=== PATIENT | female | born 2000 | race Caucasian/White ===

== ENCOUNTER 2021-11-02 14:18 | Emergency (ER) | payer BC ==
[~2021-11-02] VITALS: Ht 162.6 cm; Wt 52.2 kg
[2021-11-02] MEDS ORDERED: IV NORMAL SALINE 1000 ML BAG IV ONE ×3 (14:45→18:30)
[2021-11-02] MEDS ORDERED: ONDANSETRON 4 MG/2 ML VIAL IV ONE ×2 (14:45→18:30)
[2021-11-02] MEDS ORDERED: ONDANSETRON 4 MG/2 ML VIAL ONE (15:01)
[2021-11-02 15:03] LABS: HEMATOCRIT 45.9 % (31.2-41.9); MEAN CORPUSCULAR HEMOGLOBIN 30.1 uug (24.7-32.8); MEAN CORPUSCULAR VOLUME 85.9 fL (75.5-95.3); PLATELET COUNT (AUTO) 405 K/uL (179-408)
[2021-11-02 15:14] LABS: CARBON DIOXIDE 33 mmol/L (21-32); CHLORIDE 92 mmol/L (98-107); CREATININE 1.5 mg/dL (0.6-1.3); GLUCOSE 158 mg/dL (74-106); POTASSIUM 2.9 mmol/L (3.5-5.1); UREA NITROGEN, BLOOD 50 mg/dL (7-18)
[2021-11-02 15:20] LABS: ALANINE AMINOTRANSFERASE 26 U/L (14-59); ALKALINE PHOSPHATASE 98 U/L (50-136); ASPARTATE AMINOTRANSFERASE 42 U/L (15-37); BILIRUBIN,DIRECT 0.2 mg/dL (0.0-0.2); BILIRUBIN,TOTAL 1.1 mg/dL (0.2-1.0); TOTAL PROTEIN, SERUM 8.9 g/dL (6.4-8.2)
[2021-11-02 15:25] LABS: ETHANOL < 3 MG/DL (0-0)
[2021-11-02 15:39] LABS: ACETAMINOPHEN < 2.0 ug/mL (10-30)
[2021-11-02] MEDS ORDERED: POTASSIUM CHLORIDE 20 MEQ TAB.PRT.SR PO ONE (16:00)
[2021-11-02] MEDS ORDERED: POTASSIUM CHLORIDE 20 MEQ TAB.PRT.SR ONE (16:51)
--- NOTE | 2021-11-02 17:45 | NUR ---
Pt states feeling better, able to tolorate PO.
[2021-11-02] MEDS ORDERED: ONDA4TAB5 PO (18:31)
[2021-11-02] MEDS ORDERED: PREN1TAB81 PO (18:31)
--- NOTE | 2021-11-02 19:19 | NUR ---
Patient is able to walk with steady gait
--- NOTE | 2021-11-02 19:30 | NUR ---
Patient discharged to [facility] in stable condition. Written and verbal after care instructions given. Patient verbalizes understanding of instructions. Stressed follow up or return to ER for worsening s/s. Patient is accompanied by Darien Wilkins from [facility]. Patient is a/ox4, NAD noted. Patient is able to walk with steady gait
[2021-11-02 20:13] VITALS: BP 132/78
== END 2021-11-02 19:30 | disposition home or self-care (01) ==
LOC: ER 14:18
DX: E86.0 Dehydration (principal); R00.0 Tachycardia, unspecified; O21.9 Vomiting of pregnancy, unspecified; O99.411 Diseases of the circulatory system complicating pregnancy, first trimester; O26.839 Pregnancy related renal disease, unspecified trimester; N28.89 Other specified disorders of kidney and ureter; E87.6 Hypokalemia; F19.10 Other psychoactive substance abuse, uncomplicated; Z91.010 Allergy to peanuts; Z91.013 Allergy to seafood; O99.341 Other mental disorders complicating pregnancy, first trimester; F32.A Depression, unspecified
CPT/HCPCS: 36415; 80048; 80076; 80299; 80320; 82962; 84702; 85025; 93005; 96361; 96374; 99284; J2405; J7040 ×2; A4663; G0480